=== PATIENT | female | born 1980 | race Asian ===

== ENCOUNTER 2018-10-04 03:15 | Emergency (ER) | payer OTHER ==
[~2018-10-04] VITALS: Ht 157.5 cm; Wt 59.4 kg
[2018-10-04 03:36] VITALS: Ht 157.5 cm; Wt 59.4 kg
[2018-10-04 06:30] VITALS: BP 124/59
== END 2018-10-04 06:30 | disposition home or self-care (01) ==
LOC: ED 03:15
DX: L25.8 Unspecified contact dermatitis due to other agents (principal); T49.0X5A Adverse effect of local antifungal, anti-infective and anti-inflammatory drugs, initial encounter; Y92.89 Other specified places as the place of occurrence of the external cause
CPT/HCPCS: J7512; Q0163

== ENCOUNTER 2018-10-05 08:05 | Emergency (ER) | payer OTHER ==
[~2018-10-05] VITALS: Ht 167.6 cm; Wt 60.3 kg
[2018-10-05 08:27] VITALS: Ht 167.6 cm; Wt 60.3 kg
[2018-10-05 10:12] VITALS: BP 118/80
== END 2018-10-05 10:12 | disposition home or self-care (01) ==
LOC: ED 08:05
DX: L50.0 Allergic urticaria (principal)
CPT/HCPCS: J1200; J2930

== ENCOUNTER 2020-03-01 11:06 | Emergency (ER) | payer OTHER ==
[~2020-03-01] VITALS: Ht 170.2 cm; Wt 62.1 kg
[2020-03-01 15:02] VITALS: BP 105/56
== END 2020-03-01 15:02 | disposition home or self-care (01) ==
LOC: ED 11:06
DX: T78.40XA Allergy, unspecified, initial encounter (principal); X58.XXXA Exposure to other specified factors, initial encounter
CPT/HCPCS: J0171; J1200; J2930; J3490